=== PATIENT | female | born 1995 | race African-American/Black ===

== ENCOUNTER 2016-06-09 10:07 | Observation (INO) | payer OTHER ==
[2016-04-06 13:50] VITALS: BP 137/98
[~2016-06-09 10:07] MED LIST: FLUT9.9S NS; METR500T PO; PRED20TA PO; PREN1TAB58 PO; PROAIR HFA8.5 GM INH
[2016-06-09 11:07] LABS: BILIRUBIN,URINE NEGATIVE (NEG); GLUCOSE,URINE NEGATIVE (NEG); NITRITE,URINE NEGATIVE (NEG); PROTEIN,URINE NEGATIVE (NEG-TRACE); UROBILINOGEN,URINE 0.2 mg/dL (0.2 mg/dL)
== END 2016-06-09 11:30 | disposition home or self-care (01) ==
LOC: 3 SO LND 10:07
PROVIDERS: ADMIT Obstetrics & Gynecology; ATTEND Obstetrics & Gynecology
DX: O36.8120 Decreased fetal movements, second trimester, not applicable or unspecified (principal); O26.892 Other specified pregnancy related conditions, second trimester; M79.659 Pain in unspecified thigh; Z3A.22 22 weeks gestation of pregnancy
CPT/HCPCS: 81003; G0378; G0379; 59025

== ENCOUNTER 2016-07-01 07:39 | Emergency (ER) | payer OTHER ==
[~2016-07-01] VITALS: Ht 165.1 cm; Wt 63.2 kg
[2016-07-01 07:51] VITALS: BP 118/57
[2016-07-01] MEDS ORDERED: D-ME118S2 PO (08:40)
--- NOTE | 2016-07-01 08:41 | PHYS DOC ---
Past Medical History Past Medical History: Bronchitis, Other Additional Past Medical Histor: scoliosis, seasonal allergies Past Surgical History: No Surgical History Additional Information: quit smoking 5-6 months ago Alcohol Use: None Drug Use: None Adult General Chief Complaint Chief Complaint: COUGH HPI HPI Patient is a 20 year old female who is approximately 24 weeks comes to the emergency room today with complaint of ongoing cough and congestion for approximately 5-7 days. Patient denies any ill contacts. She denies foreign travel or hospitalization or antibiotics within the past 90 days. Patient denies any history of cardiopulmonary disease. Patient denies any history of PEs or DVTs. Patient denies any complications with her up to this point and denies any current lower abdominal/pelvic pain, vaginal bleeding or vaginal discharge. Patient states that she is a nonsmoker. Patient reports that she been taking some Benadryl and performing nasal washings home as recommended by Dr. Mtz, her regional office coordinator, without resolution. Patient reports that her primary concern at this time is a nasal congestion and sinus pressure. Review of Systems Review of Systems Constitutional: Denies fever or chills [] Eyes: Denies change in visual acuity, redness, or eye pain [] HENT: Denies nasal congestion or sore throat [] Respiratory: Denies cough or shortness of breath [] Cardiovascular: No additional information not addressed in HPI [] GI: Denies abdominal pain, nausea, vomiting, bloody stools or diarrhea [] : Denies dysuria or hematuria [] Musculoskeletal: Denies back pain or joint pain [] Integument: Denies rash or skin lesions [] Neurologic: Denies headache, focal weakness or sensory changes [] Endocrine: Denies polyuria or polydipsia [] Allergies Allergies Allergies Coded Allergies Type Severity Reaction Last Updated Verified No Known Drug Allergies 11/04/15 No Physical Exam Physical Exam Constitutional: Well developed, well nourished, no acute distress, non-toxic appearance. Patient is afebrile. Patient sitting in a semi-Fowlers position no acute distress. HENT: Normocephalic, atraumatic, bilateral external ears normal, oropharynx moist, no oral exudates, nose normal. Clear rhinorrhea with boggy nasal mucosa. Eyes: PERRLA, EOMI, conjunctiva normal, no discharge. [] Neck: Normal range of motion, no tenderness, supple, no stridor. There is no meningismus. There is bilateral anterior and posterior cervical lymphadenopathy. Cardiovascular:Heart rate regular rhythm, no murmur [] Lungs & Thorax: There is no respiratory distress or respiratory fatigue. Lungs are clear to auscultation bilaterally. Abdomen: Abdomen is gravid. Fundal height is consistent with dates. Abdomen is nontender to palpation. Skin: Warm, dry, no erythema, no rash. [] Back: No tenderness, no CVA tenderness. [] Extremities: No tenderness, no cyanosis, no clubbing, ROM intact, no edema. [] Neurologic: Alert and oriented X 3, normal motor function, normal sensory function, no focal deficits noted. [] Psychologic: Affect normal, judgement normal, mood normal. [] Current Patient Data Vital Signs Vital Signs Date Time Temp Pulse Resp B/P Pulse Ox O2 Delivery O2 Flow Rate FiO2 07/01/16 07:51 98.4 90 12 118/57 100 Room Air 98.4 EKG EKG [] Radiology/Procedures Radiology/Procedures [] Course & Med Decision Making Course & Med Decision Making Pertinent Labs and Imaging studies reviewed. (See chart for details) [] Dragon Disclaimer Dragon Disclaimer This electronic medical record was generated, in whole or in part, using a voice recognition dictation system. Departure Departure Impression: Primary Impression: Upper respiratory infection Disposition: 01 HOME, SELF-CARE Condition: Referrals: UNKNOWN PCP NAME (PCP) Patient Instructions: Upper Respiratory Infection, Adult, Fbrh-zv-Rash Additional Instructions: 1. Review the discharge instructions provided for self-care and reasons to return to the emergency department. 2. Take the medication as prescribed. 3. Yvbx-[id number] Afrin nasal spray twice a day for 3 days to help clear up the sinus pressure and nasal congestion. You can take [id number] Sudafed as well. Follow the directions on the box. 4. Drink 8-10, 10 ounce glasses of done caffeinated beverage daily. 5. Follow-up with your regional office coordinator on July 10 as planned. Scripts D-Methorphan Hb/Prometh Hcl (Promethazine-Dm Syrup)118 Ml Syrup5 Ml PO PRN Q6HRS COUGH #120 ML Prov:CALISTA SULLIVAN 07/01/16 CALISTA SULLIVAN Jul 01, 2016 08:41
== END 2016-07-01 08:48 | disposition home or self-care (01) ==
LOC: ER 07:39
DX: O26.892 Other specified pregnancy related conditions, second trimester (principal); J06.9 Acute upper respiratory infection, unspecified; Z3A.24 24 weeks gestation of pregnancy; M41.9 Scoliosis, unspecified; Z87.891 Personal history of nicotine dependence; Z87.09 Personal history of other diseases of the respiratory system
CPT/HCPCS: 99283

== ENCOUNTER → 2016-07-21 | Outpatient (CLI) | payer OTHER ==
[2016-07-01 07:51] VITALS: BP 118/57
[~2016-07-21] MED LIST changes: +D-ME118S2 PO
--- NOTE | 2016-07-21 16:44 | RAD ---
Obstetrical ultrasound, 07/21/2016: History: Uterine size discrepancy There is a single intrauterine fetus in a cephalic orientation. The biparietal diameter measures 7.4 cm compatible with a gestational age of approximately 30 weeks. The head measurements were not considered optimal due to difficulties related to the low position of the head. The femur length measurement suggests a gestational age of 27-28 weeks. The gestational age based on all of the measurements is 28-29 weeks yielding a sonographic EDC of 10/09/2016. This correlates well with the EDC of 10/07/2016 established on the previous ultrasound exam of 02/10/2016. Normal activity and heart motion were seen. The weight was estimated at 2 pounds and 6 ounces +/- 6 ounces. No specific abnormality is detected. The placenta lies posteriorly. A normal amount of amniotic fluid is present. The KIRSTIN was calculated at 9.9. The cervix was not adequately delineated due to shadowing from the overlying head. IMPRESSION: Single viable intrauterine fetus of 28-29 weeks gestational age as described above.
== END | disposition home or self-care (01) ==
LOC: US 14:05
PROVIDERS: ATTEND Obstetrics & Gynecology
DX: O26.849 Uterine size-date discrepancy, unspecified trimester (principal); Z3A.28 28 weeks gestation of pregnancy
CPT/HCPCS: 76805

== ENCOUNTER 2016-08-14 15:03 | Emergency (ER) | payer OTHER ==
[~2016-08-14] VITALS: Ht 165.1 cm; Wt 68.9 kg
[2016-08-14 15:08] VITALS: BP 132/77
--- NOTE | 2016-08-14 15:39 | PHYS DOC ---
Past Medical History Past Medical History: Bronchitis, Other Additional Past Medical Histor: scoliosis, seasonal allergies Past Surgical History: No Surgical History Alcohol Use: None Drug Use: None Adult General Chief Complaint Chief Complaint: OTHER COMPLAINTS HPI HPI 20-year-old female presenting to the emergency department today for Velasquez catheter removal today. She unfortunately missed her appointment today with Dr. Brandon the Velasquez catheter was placed approximately 5 days ago. She is about 8 months currently. Otherwise she denies any other complaints. Onset 5 days. Location . Duration constant. No alleviating factors present. Review of systems is negative for nausea vomiting fevers chills chest pain shortness of breath. She denies any abdominal pain and vaginal bleeding or recent trauma. All other review of systems is negative unless otherwise noted in history of present illness. Review of Systems Review of Systems SEE ABOVE. Current Medications Current Medications Current Medications Medications (Trade) Dose Ordered Sig/Roger Start Time Stop Time Status Last Admin Dose Admin Acetaminophen (Tylenol) 650 mg 1X ONCE 08/14/16 15:45 08/14/16 15:46 Allergies Allergies Allergies Coded Allergies Type Severity Reaction Last Updated Verified No Known Drug Allergies 11/04/15 No Physical Exam Physical Exam Constitutional: Well developed, well nourished, no acute distress, non-toxic appearance. HENT: Normocephalic, atraumatic, bilateral external ears normal, oropharynx moist, no oral exudates, nose normal. [] Eyes: PERRLA, EOMI, conjunctiva normal, no discharge. [] Neck: Normal range of motion, no tenderness, supple, no stridor. Cardiovascular:Heart rate regular rhythm, no murmur [] Lungs & Thorax: Bilateral breath sounds clear to auscultation Abdomen: Bowel sounds normal, soft, no tenderness, no masses, no pulsatile masses. [] Skin: Warm, dry, no erythema, no rash. Back: No tenderness, no CVA tenderness. [] Extremities: No tenderness, no cyanosis, no clubbing, ROM intact, no edema. [] Neurologic: Alert and oriented X 3, normal motor function, normal sensory function, no focal deficits noted. [] Psychologic: Affect normal, judgement normal, mood normal. Current Patient Data Vital Signs Vital Signs Date Time Temp Pulse Resp B/P Pulse Ox O2 Delivery O2 Flow Rate FiO2 08/14/16 15:08 97.5 110 20 98 Room Air 97.5 EKG EKG [] Radiology/Procedures Radiology/Procedures [] Course & Med Decision Making Course & Med Decision Making Pertinent Labs and Imaging studies reviewed. 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 She had no other complaints. Vital signs afebrile. Pulse mildly elevated at 110. Otherwise unremarkable. pt denied any contractions or evidence of labor. She was otherwise asymptomatic. I tried to call Dr. Brandon however unfortunately he was unavailable secondary to not being environmental sampler and his office believe that he was in a surgical procedure at the time. I explained to the patient denies felt it was in her best interest to have this work catheter removed by the pizza baker and recommended she make a follow-up appointment over the next day or 2. She was subsequently discharged home in stable condition. Dragon Disclaimer Dragon Disclaimer This electronic medical record was generated, in whole or in part, using a voice recognition dictation system. Departure Departure Impression: Primary Impression: Bartholin's cyst Disposition: 01 HOME, SELF-CARE Condition: STABLE Referrals: NO PCP (PCP) HARRY BRANDON MD Patient Instructions: Bartholin's Cyst and Abscess-Brief Additional Instructions: Thank you for allowing us to participate in your care today. Followup with Dr. brandon in 1-2 days. If you do not have a primary care provider you can ask for a list of our primary care providers. Return to the emergency department you have any new or concerning findings. This should be evaluated by the primary care physician and any necessary consulting services for continued management within a few days after discharge. Return to emergency room if you have any new or concerning symptoms including but not limited to fever, chills, nausea, vomiting, intractable pain, any new rashes, chest pain, shortness of air, uncontrolled bleeding, difficulty breathing, and/or vision loss. JASPER MCKEON MD Aug 14, 2016 15:39
[2016-08-14] MEDS ORDERED: ACETAMINOPHEN 325 MG TABLET. PO ONE (15:45)
[2016-08-14] MEDS ORDERED: ACET325T9 PO (15:46)
== END 2016-08-14 16:07 | disposition home or self-care (01) ==
LOC: ER 15:03
DX: O26.893 Other specified pregnancy related conditions, third trimester (principal); N75.0 Cyst of Bartholin's gland; Z3A.00 Weeks of gestation of pregnancy not specified
CPT/HCPCS: 99282

== ENCOUNTER 2016-09-18 20:05 | Observation (INO) | payer OTHER ==
[~2016-09-18 20:05] MED LIST changes: +ACET325T9 PO
[2016-09-18] MEDS ORDERED: IV RINGERS,LACTATED 1000ML 1,000 ML IV SCH (20:09)
[2016-09-18 20:31] LABS: BILIRUBIN,URINE NEGATIVE (NEG); GLUCOSE,URINE NEGATIVE (NEG); NITRITE,URINE NEGATIVE (NEG); PROTEIN,URINE NEGATIVE (NEG-TRACE); UROBILINOGEN,URINE 0.2 mg/dL (0.2 mg/dL)
[2016-09-18 20:43] LABS: BACTERIA,URINE FEW /HPF (0-FEW); RBC,URINE OCC /HPF (0-2); WBC,URINE 0 /HPF (0-4)
[2016-09-18 20:44] LABS: SQUAMOUS EPITHELIAL CELL,UR MOD /LPF
[2016-09-18 23:11] LABS: BARBITURATES NEG (NEG); BENZODIAZEPINES NEG (NEG); CANNABINOIDS NEG (NEG); COCAINE NEG (NEG); METHADONE NEG (NEG); OPIATES NEG (NEG); PHENCYCLIDINE NEG (NEG)
== END 2016-09-18 22:03 | disposition home or self-care (01) ==
LOC: 3 SO LND 20:05
PROVIDERS: ADMIT Specialist; ATTEND Specialist
DX: O26.893 Other specified pregnancy related conditions, third trimester (principal); R33.9 Retention of urine, unspecified; Z3A.36 36 weeks gestation of pregnancy
CPT/HCPCS: 81001; G0378; G0379; G0481

== ENCOUNTER 2016-09-25 01:43 | Observation (INO) | payer OTHER ==
[2016-09-25] MEDS ORDERED: IV RINGERS,LACTATED 1000ML 1,000 ML IV PRN (02:00)
[2016-09-25 02:05] LABS: BILIRUBIN,URINE NEGATIVE (NEG); GLUCOSE,URINE NEGATIVE (NEG); NITRITE,URINE NEGATIVE (NEG); PROTEIN,URINE NEGATIVE (NEG-TRACE); UROBILINOGEN,URINE 0.2 mg/dL (0.2 mg/dL)
[2016-09-25 02:11] LABS: BACTERIA,URINE 0 /HPF (0-FEW); RBC,URINE OCC /HPF (0-2); SQUAMOUS EPITHELIAL CELL,UR FEW /LPF; WBC,URINE 0 /HPF (0-4)
== END 2016-09-25 03:15 | disposition home or self-care (01) ==
LOC: 3 SO LND 01:43
PROVIDERS: ADMIT Specialist; ATTEND Specialist
DX: O62.9 Abnormality of forces of labor, unspecified (principal); Z3A.37 37 weeks gestation of pregnancy
CPT/HCPCS: 81001; G0378; G0379

== ENCOUNTER 2016-09-30 06:13 | Observation (INO) | payer OTHER ==
[2016-09-30] MEDS ORDERED: IV RINGERS,LACTATED 1000ML 1,000 ML IV SCH (06:30)
[2016-09-30 06:48] LABS: BILIRUBIN,URINE NEGATIVE (NEG); GLUCOSE,URINE NEGATIVE (NEG); NITRITE,URINE NEGATIVE (NEG); PH,URINE 6.5; PROTEIN,URINE NEGATIVE (NEG-TRACE); UROBILINOGEN,URINE 0.2 mg/dL (0.2 mg/dL)
[2016-09-30 07:10] LABS: BACTERIA,URINE FEW /HPF (0-FEW); RBC,URINE OCC /HPF (0-2); SQUAMOUS EPITHELIAL CELL,UR MANY /LPF
--- NOTE | 2016-09-30 10:08 | RAD ---
Obstetrical ultrasound-Limited, 08/31/2016: History: Vaginal leakage, advanced , check amniotic fluid volume The limited examination demonstrate a single intrauterine fetus in a cephalic orientation. The heart rate is 152 bpm. The placenta lies posteriorly extending into the fundal region and is considered to be grade 2. A full survey was not performed at this time. The amniotic fluid index was calculated at 8.5, which is in the normal range. On the previous study of 07/21/2016 the KIRSTIN was 9.9.
[2016-10-03] MEDS ORDERED: NAPR500T3 PO (04:40)
[2016-10-03] MEDS ORDERED: HYDR-971 PO (04:40)
== END 2016-09-30 09:50 | disposition home or self-care (01) ==
LOC: 3 SO LND 06:13
PROVIDERS: ADMIT Specialist; ATTEND Specialist
DX: O62.9 Abnormality of forces of labor, unspecified (principal); O26.893 Other specified pregnancy related conditions, third trimester; N89.8 Other specified noninflammatory disorders of vagina; Z3A.38 38 weeks gestation of pregnancy
CPT/HCPCS: 76815; 81001; G0378; G0379

== ENCOUNTER 2016-11-03 14:04 | Emergency (ER) | payer OTHER ==
[~2016-11-03] VITALS: Ht 165.1 cm; Wt 63.5 kg
[~2016-11-03 14:04] MED LIST changes: +HYDR-971 PO; +NAPR500T3 PO
[2016-11-03 14:43] VITALS: BP 144/86
--- NOTE | 2016-11-03 15:29 | PHYS DOC ---
Past Medical History Past Medical History: Bronchitis, Other Additional Past Medical Histor: scoliosis, seasonal allergies Past Surgical History: No Surgical History Alcohol Use: None Drug Use: None Adult General Chief Complaint Chief Complaint: ABDOMINAL PAIN HPI HPI Patient is a 20 year old female who presents with complaint of low back pain and heavy vaginal bleeding. The patient states that she is one month . Patient delivered by spontaneous vaginal delivery on October 01, 2016. Patient states that she started having bleeding over the past couple days. Patient states that the bleeding has been very heavy which is causing the patient concern. The patient also states that she has been having trouble with back pain. Patient states that she received an epidural while in the hospital one month ago for her delivery. Patient states that she is continuing to have pain which has been treated by her primary doctor with hydrocodone. Patient denies any loss of sensation in her groin or loss of bowel or bladder control. Patient has not had any associated fevers with her symptoms. Patient rates pain currently as 9 out of 10. Review of Systems Review of Systems Constitutional: Denies fever or chills [] Eyes: Denies change in visual acuity, redness, or eye pain [] HENT: Denies nasal congestion or sore throat [] Respiratory: Denies cough or shortness of breath [] Cardiovascular: Denies chest pain or edema [] GI: Denies abdominal pain, nausea, vomiting, bloody stools or diarrhea [] : Vaginal bleeding, denies dysuria or hematuria [] Musculoskeletal: Back pain, muscle cramps [] Integument: Denies rash or skin lesions [] Neurologic: Denies headache, focal weakness or sensory changes [] Allergies Allergies Allergies Coded Allergies Type Severity Reaction Last Updated Verified No Known Drug Allergies 11/04/15 No Physical Exam Physical Exam Constitutional: Well developed, well nourished, no acute distress, non-toxic appearance. [] HENT: Normocephalic, atraumatic, bilateral external ears normal, oropharynx moist, no oral exudates, nose normal. [] Eyes: PERRLA, EOMI, conjunctiva normal, no discharge. [] Neck: Normal range of motion, no tenderness, supple, no stridor. [] Cardiovascular:Heart rate regular rhythm, no murmur [] Lungs & Thorax: Bilateral breath sounds clear to auscultation [] Abdomen: Bowel sounds normal, soft, no tenderness, no masses, no pulsatile masses. [] Skin: Warm, dry, no erythema, no rash. [] Back: Point tenderness in lower lumbar spine near insertion site of epidural, bilateral paraspinous muscle tenderness palpation, no CVA tenderness. [] Extremities: No tenderness, no cyanosis, no clubbing, ROM intact, no edema. [] Neurologic: Alert and oriented X 3, normal motor function, normal sensory function, no focal deficits noted. [] Current Patient Data Vital Signs Vital Signs Date Time Temp Pulse Resp B/P (MAP) Pulse Ox O2 Delivery O2 Flow Rate FiO2 11/03/16 14:43 98.7 60 20 144/86 (105) 98 Room Air 98.7 Lab Values Laboratory Tests Test 11/03/16 13:35 POC Urine HCG, Qualitative Hcg negative (Negative) EKG EKG Not performed [] Radiology/Procedures Radiology/Procedures Not performed [] Course & Med Decision Making Course & Med Decision Making Pertinent Labs and Imaging studies reviewed. (See chart for details) The patient was offered a pelvic exam in the emergency department to assess the extent of her bleeding. Patient's vital signs are stable and I did explain to the patient that abnormal bleeding within the first 2-3 months was common. The patient initially stated that she would like to have the pelvic exam completed, however during her emergency department stay she stated that she would have to leave because her childcare would not be available any longer at home. She did agree to follow-up with Dr. Brandon in the next 3 days and return to emergency department for any worsening symptoms. The patient's vitals continue to be stable at discharge. Dragon Disclaimer Dragon Disclaimer This electronic medical record was generated, in whole or in part, using a voice recognition dictation system. Departure Departure Impression: Primary Impression: bleeding Disposition: HOME, SELF-CARE Condition: STABLE Referrals: HARRY BRANDON MD (PCP) Patient Instructions: Care After Vaginal Delivery Additional Instructions: Follow-up with Dr. Brandon in the next 3 days. Return to the emergency department for any worsening symptoms. Problem Qualifiers Primary Impression: bleeding hemorrhage type: unspecified Qualified Codes: O72.1 - Other immediate hemorrhage SARIKA CUMMINS MD Nov 03, 2016 15:29
[2016-11-03 15:40] LABS: BILIRUBIN,URINE NEGATIVE (NEG); GLUCOSE,URINE NEGATIVE (NEG); NITRITE,URINE NEGATIVE (NEG); PH,URINE 7.5; PROTEIN,URINE NEGATIVE (NEG-TRACE)
[2016-11-03 16:46] LABS: BACTERIA,URINE 0 /HPF (0-FEW); SQUAMOUS EPITHELIAL CELL,UR OCC /LPF; WBC,URINE OCC /HPF (0-4)
== END 2016-11-03 15:45 | disposition home or self-care (01) ==
LOC: ER 14:04
DX: O72.1 Other immediate postpartum hemorrhage (principal); O90.89 Other complications of the puerperium, not elsewhere classified; M54.5 Low back pain; M41.9 Scoliosis, unspecified
CPT/HCPCS: 81001; 81025; 87086; 99284

== ENCOUNTER 2018-05-29 12:37 | Emergency (ER) | payer SELFPAY ==
[~2018-05-29] VITALS: Ht 165.1 cm; Wt 63.5 kg
[2018-05-29 12:37] VITALS: BP 124/69
[~2018-05-29 12:37] MED LIST changes: +ALBU2.5V8 INH; -D-ME118S2 PO; +HYDR-3164 PO; -HYDR-971 PO; +NAPR-514 PO; -NAPR500T3 PO; -PROAIR HFA8.5 GM INH; +PROM118S9 PO
[2018-05-29] MEDS ORDERED: IV NORMAL SALINE 1000ML BAG 1,000 ML IV ONE (13:00)
[2018-05-29 13:13] LABS: BILIRUBIN,URINE NEGATIVE (NEG); CLARITY,URINE CLEAR; COLOR,URINE YELLOW; NITRITE,URINE NEGATIVE (NEG); PH,URINE 7.5; PROTEIN,URINE NEGATIVE (NEG-TRACE)
[2018-05-29 13:27] LABS: BACTERIA,URINE FEW /HPF (0-FEW); SQUAMOUS EPITHELIAL CELL,UR MOD /LPF; WBC,URINE 0 /HPF (0-4)
[2018-05-29] MEDS ORDERED: ONDANSETRON PF 4 MG/2 ML VIAL. IV ONE (13:30)
[2018-05-29 14:07] LABS: CALCIUM 8.8 mg/dL (8.5-10.1); CREATININE 0.5 mg/dL (0.6-1.0); GFR 188.5; POTASSIUM 3.9 mmol/L (3.5-5.1)
[2018-05-29] MEDS ORDERED: METO10TA81 PO (14:34)
--- NOTE | 2018-05-29 15:42 | PHYS DOC ---
Past Medical History Past Medical History: Bronchitis, Other Additional Past Medical Histor: scoliosis, seasonal allergies Past Surgical History: No Surgical History Alcohol Use: None Drug Use: None Adult General Chief Complaint Chief Complaint: GI PROBLEM HPI HPI Patient is a 22 year old female who presents with flu-like symptoms. Patient has had general body aches and nausea with some vomiting and upper airway complaints over the last 5 days. She did not have a her at home but does endorse some chills. She also states she had some vomiting mostly earlier in the week but she does have some residual nausea. No vomiting today. She has been able to keep down food and fluids today. No cough. No shortness of breath. She does not have any other chronic health problems. Her last menstrual. Was 4 weeks ago and she fears there is a possibility of . She is not currently on control. She denies any significant abdominal pain. No vaginal symptoms. No irregular discharge or bleeding. She is sexually active. Review of Systems Review of Systems Constitutional: Denies fever or chills Eyes: Denies change in visual acuity HENT: Denies nasal congestion or sore throat Respiratory: Denies cough or shortness of breath Cardiovascular: No additional information not addressed in HPI GI: Denies abdominal pain, nausea, vomiting, bloody stools or diarrhea : Denies dysuria Musculoskeletal: Denies back pain Integument: Denies rash or skin lesions Neurologic: Denies headache All other systems were reviewed and found to be within normal limits, except as documented in this note. Current Medications Current Medications Current Medications Medications (Trade) Dose Ordered Sig/Roger Start Time Stop Time Status Last Admin Dose Admin Ondansetron HCl (Zofran) 4 mg 1X ONCE 05/29/18 13:30 05/29/18 13:31 DC 05/29/18 13:32 4 MG Sodium Chloride 1,000 ml @ 1,000 mls/hr 1X ONCE 05/29/18 13:00 05/29/18 13:59 DC 05/29/18 13:32 1,000 MLS/HR Allergies Allergies Allergies Coded Allergies Type Severity Reaction Last Updated Verified No Known Drug Allergies 11/04/15 No Physical Exam Physical Exam Constitutional: Well developed, well nourished, no acute distress HENT: Normocephalic, atraumatic, bilateral external ears normal, oropharynx moist Eyes: PERRLA, EOMI, conjunctiva normal Neck: Normal range of motion Cardiovascular:Heart rate regular rhythm, no murmur Lungs & Thorax: Bilateral breath sounds clear to auscultation Abdomen: Bowel sounds normal, soft Skin: Warm, dry, no erythema, no rash Back: No tenderness, no CVA tenderness Extremities: No tenderness, no cyanosis Neurologic: Alert and oriented X 3 Psychologic: Affect normal, judgement normal Current Patient Data Vital Signs Vital Signs Date Time Temp Pulse Resp B/P (MAP) Pulse Ox O2 Delivery O2 Flow Rate FiO2 05/29/18 12:37 97.7 67 16 124/69 (87) 100 Room Air 97.7 Lab Values Laboratory Tests Test 05/29/18 12:50 05/29/18 12:58 05/29/18 13:30 Urine Collection Type Unknown Urine Color Yellow Urine Clarity Clear Urine pH 7.5 Urine Specific [place] 1.015 Urine Protein Negative mg/dL (NEG-TRACE) Urine Glucose (UA) Negative mg/dL (NEG) Urine Ketones (Stick) Negative mg/dL (NEG) Urine Blood Trace (NEG) Urine Nitrite Negative (NEG) Urine Bilirubin Negative (NEG) Urine Urobilinogen Dipstick 1.0 mg/dL (0.2 mg/dL) Urine Leukocyte Esterase Negative (NEG) Urine RBC 3-5 /HPF (0-2) Urine WBC 0 /HPF (0-4) Urine Squamous Epithelial Cells Mod /LPF Urine Bacteria Few /HPF (0-FEW) POC Urine HCG, Qualitative Hcg negative (Negative) Sodium Level 133 mmol/L (136-145) L Potassium Level 3.9 mmol/L (3.5-5.1) Chloride Level 100 mmol/L (98-107) Carbon Dioxide Level 27 mmol/L (21-32) Anion Gap 6 (6-14) Blood Urea Nitrogen 8 mg/dL (7-20) Creatinine 0.5 mg/dL (0.6-1.0) L Estimated GFR (Cockcroft-Gault) 188.5 Glucose Level 87 mg/dL (70-99) Calcium Level 8.8 mg/dL (8.5-10.1) Laboratory Tests 05/29/18 13:30 EKG EKG [] Radiology/Procedures Radiology/Procedures [] Course & Med Decision Making Course & Med Decision Making Pertinent Labs and Imaging studies reviewed. (See chart for details) was evaluated in the emergency department primarily for some gastritis type symptoms or viral type symptoms. She was given 1 L of fluid. She had a urinalysis which did not reveal any infection. She was not . She was feeling much improved after 1 L fluid and was discharged to home. She was advised to follow-up with her primary care doctor. She is provided a prescription for Reglan to use as needed for nausea symptoms. Her abdominal exam was benign and she had no significant pelvic complaints today. Dragon Disclaimer Dragon Disclaimer This electronic medical record was generated, in whole or in part, using a voice recognition dictation system. Departure Departure Impression: Primary Impression: Viral syndrome Additional Impression: Nausea and vomiting Disposition: HOME, SELF-CARE Condition: GOOD Patient Instructions: Viral Gastroenteritis, [id number] Scripts Metoclopramide Hcl (REGLAN) 10 Mg Tablet 1 TAB PO TID PRN for NAUSEA, #10 TAB Prov: JOSH ALCANTAR DO 05/29/18 Problem Qualifiers JOSH ALCANTAR DO May 29, 2018 15:42
== END 2018-05-29 14:36 | disposition home or self-care (01) ==
LOC: ER 12:37
DX: M79.18 Myalgia, other site (principal); B34.9 Viral infection, unspecified
CPT/HCPCS: 36415; 80048; 81001; 81025; 96361; 96374; 99283; J2405; J7030

== ENCOUNTER 2018-06-15 11:10 | Emergency (ER) | payer SELFPAY ==
[~2018-06-15] VITALS: Ht 165.1 cm; Wt 56.7 kg
[~2018-06-15 11:10] MED LIST changes: +METO10TA81 PO
[2018-06-15 12:08] VITALS: BP 124/80
[2018-06-15] MEDS ORDERED: KETOROLAC 60 MG/2 ML VIAL. IM ONE (12:15)
[2018-06-15] MEDS ORDERED: IBUPROFEN 400 MG TABLET. PO ONE ×2 (12:30→12:34)
[2018-06-15] MEDS ORDERED: AMOX500C PO (12:31)
[2018-06-15] MEDS ORDERED: IBUP-1060 PO (12:31)
--- NOTE | 2018-06-15 12:31 | PHYS DOC ---
Past Medical History Past Medical History: Bronchitis, Other Additional Past Medical Histor: scoliosis, seasonal allergies Past Surgical History: No Surgical History Alcohol Use: None Drug Use: None Adult General Chief Complaint Chief Complaint: DENTAL PROBLEM HPI HPI Patient is a 22 year old female who presents with pain to her lower left gumline, she feels like there is a flap of skin that is swollen. She denies nausea, vomiting or fever. She has not seen a dentist. Review of Systems Review of Systems Constitutional: Denies fever or chills [] Eyes: Denies change in visual acuity, redness, or eye pain [] HENT: See HPI Respiratory: Denies cough or shortness of breath [] Cardiovascular: No additional information not addressed in HPI [] Neurologic: Denies headache, focal weakness or sensory changes [] Endocrine: Denies polyuria or polydipsia [] All other systems were reviewed and found to be within normal limits, except as documented in this note. Current Medications Current Medications Current Medications Medications (Trade) Dose Ordered Sig/Roger Start Time Stop Time Status Last Admin Dose Admin Ibuprofen (Motrin) 400 mg STK-MED ONCE 06/15/18 12:34 06/15/18 12:42 DC Ketorolac Tromethamine (Toradol Im) 60 mg 1X ONCE 06/15/18 12:15 06/15/18 12:16 DC Allergies Allergies Allergies Coded Allergies Type Severity Reaction Last Updated Verified No Known Drug Allergies 11/04/15 No Physical Exam Physical Exam Constitutional: Well developed, well nourished, no acute distress, non-toxic appearance. [] HENT: Normocephalic, atraumatic, erythema and swelling to the mid left gumline, no obvious pus pool, oropharynx moist, no oral exudates, nose normal. [] Eyes: PERRLA, EOMI, conjunctiva normal, no discharge. [] Neck: Normal range of motion, no tenderness, supple, no stridor. [] Cardiovascular:Heart rate regular rhythm, no murmur [] Lungs & Thorax: Bilateral breath sounds clear to auscultation [] Neurologic: Alert and oriented X 3, normal motor function, normal sensory function, no focal deficits noted. [] Psychologic: Affect normal, judgement normal, mood normal. [] Current Patient Data Vital Signs Lab Values Laboratory Tests Test 06/15/18 12:23 POC Urine HCG, Qualitative Hcg negative (Negative) EKG EKG [] Radiology/Procedures Radiology/Procedures [] Course & Med Decision Making Course & Med Decision Making Pertinent Labs and Imaging studies reviewed. (See chart for details) [] Dragon Disclaimer Dragon Disclaimer This electronic medical record was generated, in whole or in part, using a voice recognition dictation system. Departure Departure Impression: Primary Impression: Dental infection Disposition: HOME, SELF-CARE Condition: STABLE Referrals: NO PCP (PCP) Patient Instructions: Dental Pain Additional Instructions: Take medications as directed. Follow-up with a dentist at an earliest available appointment. Scripts Ibuprofen (IBUPROFEN) 800 Mg Tablet 800 MG PO PRN Q6HRS PRN for INFLAMMATION, #20 TAB Prov: MADDY COOPER APRN 06/15/18 Amoxicillin (AMOXICILLIN) 500 Mg Capsule 2 CAP PO BID for dental infection, #40 CAP Prov: MADDY COOPER APRN 06/15/18 MADDY COOPER APRN Jun 15, 2018 12:31
== END 2018-06-15 12:42 | disposition home or self-care (01) ==
LOC: ER 11:10
DX: K04.7 Periapical abscess without sinus (principal)
CPT/HCPCS: 81025; 99283

== ENCOUNTER 2018-12-20 18:43 | Emergency (ER) | payer SELFPAY ==
[~2018-12-20 18:43] MED LIST changes: +AMOX500C PO; +IBUP-1060 PO
== END 2018-12-20 20:23 | disposition left against medical advice (07) ==
LOC: ER 18:43
DX: O26.891 Other specified pregnancy related conditions, first trimester (principal); R10.9 Unspecified abdominal pain; Z3A.01 Less than 8 weeks gestation of pregnancy; Z53.21 Procedure and treatment not carried out due to patient leaving prior to being seen by health care provider

== ENCOUNTER 2019-10-15 10:29 | Emergency (ER) | payer SELFPAY ==
[~2019-10-15] VITALS: Ht 165.1 cm; Wt 56.8 kg
[~2019-10-15 10:29] MED LIST changes: +PROM118S10 PO; -PROM118S9 PO
[2019-10-15 11:12] VITALS: BP 111/65
[2019-10-15 12:00] LABS: BILIRUBIN,URINE NEGATIVE (NEG); CLARITY,URINE CLEAR; COLOR,URINE YELLOW; NITRITE,URINE NEGATIVE (NEG); PROTEIN,URINE NEGATIVE (NEG-TRACE); UROBILINOGEN,URINE 0.2 mg/dL (0.2 mg/dL)
[2019-10-15 12:35] LABS: SQUAMOUS EPITHELIAL CELL,UR MANY /LPF
[2019-10-15 12:36] LABS: BACTERIA,URINE FEW /HPF (0-FEW)
[2019-10-15 13:05] LABS: BASO % 0 % (0-3); EOS # 0.1 x10^3/uL (0.0-0.7); EOS % 1 % (0-3); HEMATOCRIT 34.6 % (36.0-47.0); HEMOGLOBIN 12.4 g/dL (12.0-15.5); LYMPH # 1.8 x10^3/uL (1.0-4.8); LYMPH % 27 % (24-48); MEAN CORPUSCULAR HEMOGLOBIN 33 pg (25-35); MEAN CORPUSCULAR HGB CONC 36 g/dL (31-37); MEAN CORPUSCULAR VOLUME 92 fL (79-100); MONO # 0.3 x10^3/uL (0.0-1.1); MONO % 5 % (0-9); NEUT # 4.4 x10^3/uL (1.8-7.7); NEUT % 67 % (31-73); PLATELET COUNT 402 x10^3/uL (140-400); RED BLOOD COUNT 3.76 x10^6/uL (3.50-5.40); RED CELL DISTRIBUTION WIDTH 12.5 % (11.5-14.5); WHITE BLOOD COUNT 6.6 x10^3/uL (4.0-11.0)
[2019-10-15 13:11] LABS: CALCIUM 8.5 mg/dL (8.5-10.1); CREATININE 0.5 mg/dL (0.6-1.0); GFR 186.7; POTASSIUM 3.3 mmol/L (3.5-5.1)
[2019-10-15 13:18] LABS: ALBUMIN 3.3 g/dL (3.4-5.0); TOTAL BILIRUBIN 0.2 mg/dL (0.2-1.0); TOTAL PROTEIN 6.5 g/dL (6.4-8.2)
--- NOTE | 2019-10-15 14:01 | PHYS DOC ---
Past Medical History Past Medical History: Bronchitis, Other Additional Past Medical Histor: scoliosis, seasonal allergies Past Surgical History: No Surgical History Smoking Status: Current Every Day Smoker Additional Information: 0.5 PPD Alcohol Use: None Drug Use: None General Adult EDM: Chief Complaint: ABDOMINAL PAIN IN HPI: HPI: Per nurse, Patient is a 23 year old female who presented to ER today due to low abdominal cramping. Patient just found out that she is she went to be checked out. Patient denies any vaginal bleeding or discharge, no fever, no nausea vomiting. This physician went to see patient in her room but she was not in the room. Nurse reported that patient went to the bathroom. This physician was intended to come back to initiate the exam, this physician then ordered some basic lab work before seeing the patient. Review of Systems: Review of Systems: NOT ABLE TO OBTAIN BECAUSE PATIENT LEFT BEFORE BEING EXAMINED BY THIS PHYSICIAN Heart Score: Risk Factors: Risk Factors: DM, Current or recent (<one month) smoker, HTN, HLP, family history of CAD, obesity. Risk Scores: Score 0 - 3: 2.5% MACE over next 6 weeks - Discharge Home Score 4 - 6: 20.3% MACE over next 6 weeks - Admit for Clinical Observation Score 7 - 10: 72.7% MACE over next 6 weeks - Early Invasive Strategies Allergies: Allergies: Allergies Coded Allergies Type Severity Reaction Last Updated Verified No Known Drug Allergies 11/04/15 No Physical Exam: PE: NO EXAM WAS DONE BECAUSE PATIENT LEFT BEFORE BEING SEEN BY PHYSICIAN Current Patient Data: Labs: Laboratory Tests Test 10/15/19 10:38 10/15/19 10:42 10/15/19 12:50 10/15/19 12:55 Urine Collection Type Unknown Urine Color Yellow Urine Clarity Clear Urine pH 7.0 (<5.0-8.0) Urine Specific Amasa 1.025 (1.000-1.030) Urine Protein Negative mg/dL (NEG-TRACE) Urine Glucose (UA) Negative mg/dL (NEG) Urine Ketones (Stick) Negative mg/dL (NEG) Urine Blood Negative (NEG) Urine Nitrite Negative (NEG) Urine Bilirubin Negative (NEG) Urine Urobilinogen Dipstick 0.2 mg/dL (0.2 mg/dL) Urine Leukocyte Esterase Small (NEG) Urine RBC 11-20 /HPF (0-2) Urine WBC 1-4 /HPF (0-4) Urine Squamous Epithelial Cells Many /LPF Urine Bacteria Few /HPF (0-FEW) Urine Mucus Marked /LPF POC Urine HCG, Qualitative Hcg positive (Negative) White Blood Count 6.6 x10^3/uL (4.0-11.0) Red Blood Count 3.76 x10^6/uL (3.50-5.40) Hemoglobin 12.4 g/dL (12.0-15.5) Hematocrit 34.6 % (36.0-47.0) L Mean Corpuscular Volume 92 fL (79-100) Mean Corpuscular Hemoglobin 33 pg (25-35) Mean Corpuscular Hemoglobin Concent 36 g/dL (31-37) Red Cell Distribution Width 12.5 % (11.5-14.5) Platelet Count 402 x10^3/uL (140-400) H Neutrophils (%) (Auto) 67 % (31-73) Lymphocytes (%) (Auto) 27 % (24-48) Monocytes (%) (Auto) 5 % (0-9) Eosinophils (%) (Auto) 1 % (0-3) Basophils (%) (Auto) 0 % (0-3) Neutrophils # (Auto) 4.4 x10^3/uL (1.8-7.7) Lymphocytes # (Auto) 1.8 x10^3/uL (1.0-4.8) Monocytes # (Auto) 0.3 x10^3/uL (0.0-1.1) Eosinophils # (Auto) 0.1 x10^3/uL (0.0-0.7) Basophils # (Auto) 0.0 x10^3/uL (0.0-0.2) Maternal Serum HCG Beta Subunit 39250 mIU/mL (0-5) H Sodium Level 136 mmol/L (136-145) Potassium Level 3.3 mmol/L (3.5-5.1) L Chloride Level 103 mmol/L (98-107) Carbon Dioxide Level 23 mmol/L (21-32) Anion Gap 10 (6-14) Blood Urea Nitrogen 6 mg/dL (7-20) L Creatinine 0.5 mg/dL (0.6-1.0) L Estimated GFR (Cockcroft-Gault) 186.7 BUN/Creatinine Ratio 12 (6-20) Glucose Level 80 mg/dL (70-99) Calcium Level 8.5 mg/dL (8.5-10.1) Total Bilirubin 0.2 mg/dL (0.2-1.0) Aspartate Amino Transferase (AST) 12 U/L (15-37) L Alanine Aminotransferase (ALT) 13 U/L (14-59) L Alkaline Phosphatase 44 U/L (46-116) L Total Protein 6.5 g/dL (6.4-8.2) Albumin 3.3 g/dL (3.4-5.0) L Albumin/Globulin Ratio 1.0 (1.0-1.7) Laboratory Tests 10/15/19 12:50 Laboratory Tests 10/15/19 12:55 Vital Signs: Vital Signs Date Time Temp Pulse Resp B/P (MAP) Pulse Ox O2 Delivery O2 Flow Rate FiO2 10/15/19 11:12 84 12 111/65 (80) 96 Room Air 10/15/19 10:39 98.4 98.4 EKG: EKG: [] Radiology/Procedures: Radiology/Procedures: [] Course & Med Decision Making: Course & Med Decision Making Pertinent Labs and Imaging studies reviewed. (See chart for details) This physician was busy with another critical patient, when this physician went to see the patient, patient was not in the room again. Nurse reported that patient just left AGAINST MEDICAL ADVICE. This physician never saw this patient. this encounter should be classified LEFT WITHOUT BEING SEEN. Ilene Disclaimer: Dragnena Disclaimer: This electronic medical record was generated, in whole or in part, using a voice recognition dictation system. Departure Departure Impression: Primary Impression: Abdominal pain in Disposition: 07 AGAINST MEDICAL ADVICE Referrals: NO PCP (PCP) Justicifation of Admission Dx: Justifications for Admission: Justification of Admission Dx: N/A FELIX MELLO DO Oct 15, 2019 14:01
== END 2019-10-15 13:34 | disposition left against medical advice (07) ==
LOC: ER 10:29
DX: O26.891 Other specified pregnancy related conditions, first trimester (principal); R10.30 Lower abdominal pain, unspecified; J30.2 Other seasonal allergic rhinitis; M41.80 Other forms of scoliosis, site unspecified; F17.200 Nicotine dependence, unspecified, uncomplicated; Z3A.00 Weeks of gestation of pregnancy not specified
CPT/HCPCS: 36415; 80053; 81001; 81025; 84702; 85025; 86900; 86901; 87086; 99283

== ENCOUNTER 2019-10-29 12:25 | Emergency (ER) | payer MEDICAID, OTHER ==
[~2019-10-29] VITALS: Ht 165.1 cm; Wt 59.0 kg
[2019-10-29] MEDS ORDERED: ACETAMINOPHEN 500 MG TABLET PO ONE (13:00)
--- NOTE | 2019-10-29 13:03 | PHYS DOC ---
Past Medical History Past Medical History: Bronchitis, Other Additional Past Medical Histor: scoliosis, seasonal allergies Additional Past Surgical Histo: Elective D&C Smoking Status: Former Smoker Alcohol Use: None Drug Use: None General Adult EDM: Chief Complaint: ABDOMINAL PAIN IN HPI: HPI: Patient is a 23 year old AA female who presents to the emergency department with complaints of pain with a deep breath on the right side that began today. She reports that the pain in the right side of her chest increases with palpation. She denies any cough, shortness of breath, wheezing, hemoptysis, sputum production, sore throat, ear pain, headache, dizziness, weakness, body aches, fatigue, nausea, vomiting, diarrhea, back pain, hematuria, irregular vaginal odor, vaginal discharge, or vaginal bleeding. She reports increased urinary frequency. Patient states she is currently , 5, para 1, 3 (1 of them elective). She states she is unsure of her last menstrual cycle goal she believes that it was somewhere around June [id number]. Patient states she has not had a visit with her ORTHOPEDICS PEDIATRIC PHYSICIAN yet because she was afraid of mary COVID. She denies any contact with anyone who has the virus and denies any symptoms of the virus. The patient currently rates her pelvic discomfort a 9 out of 10 on the pain scale, she denies any alleviating or exacerbating factors. Review of Systems: Review of Systems: Constitutional: Denies fever or chills. [] Eyes: Denies change in visual acuity. [] HENT: Denies nasal congestion or sore throat. [] Respiratory: Denies cough or shortness of breath; see HPI. [] Cardiovascular: Denies chest pain or edema. [] GI: Denies nausea, vomiting, bloody stools or diarrhea; see HPI. [] : See HPI Musculoskeletal: Denies back pain or joint pain. [] Integument: Denies rash. [] Neurologic: Denies headache, focal weakness or sensory changes. [] Endocrine: Denies polyuria or polydipsia. [] Lymphatic: Denies swollen glands. [] Psychiatric: Denies depression or anxiety. [] Heart Score: Risk Factors: Risk Factors: DM, Current or recent (<one month) smoker, HTN, HLP, family history of CAD, obesity. Risk Scores: Score 0 - 3: 2.5% MACE over next 6 weeks - Discharge Home Score 4 - 6: 20.3% MACE over next 6 weeks - Admit for Clinical Observation Score 7 - 10: 72.7% MACE over next 6 weeks - Early Invasive Strategies Allergies: Allergies: Allergies Coded Allergies Type Severity Reaction Last Updated Verified No Known Drug Allergies 11/04/15 No Physical Exam: PE: Constitutional: Well developed, well nourished, no acute distress, non-toxic appearance. [] HENT: Normocephalic, atraumatic, bilateral external ears normal, nose normal. [] Eyes: PERRLA, EOMI, conjunctiva normal, no discharge. [] Neck: Normal range of motion, no stridor. [] Cardiovascular:Heart rate regular rhythm Lungs & Thorax: Lungs clear throughout all maldonado, respirations even and unlabored, no retractions, no respiratory distress; right upper anterior chest w all tenderness to palpation increases with deep breath Abdomen: soft, suprapubic tenderness, palpable fundus midway between the umbilicus and the pubis Back: No CVA tenderness Skin: Warm, dry, no erythema, no rash. [] Extremities: No cyanosis, ROM intact, no edema. [] Neurologic: Alert and oriented X 3, no focal deficits noted. [] Psychologic: Affect normal, judgement normal, mood normal. [] Current Patient Data: Labs: Laboratory Tests Test 10/29/19 12:41 POC Urine HCG, Qualitative Hcg positive (Negative) Vital Signs: Vital Signs Date Time Temp Pulse Resp B/P (MAP) Pulse Ox O2 Delivery O2 Flow Rate FiO2 10/29/19 12:43 98.5 90 20 127/59 (81) 97 Room Air 98.5 EKG: EKG: [] Radiology/Procedures: Radiology/Procedures: PROCEDURE: PREG MORE THAN OR EQ TO 14 WKS Obstetric ultrasound less than 14 weeks HISTORY: Pelvic pain. FINDINGS: Transabdominal transducer was utilized. Shipfitter measures a cervical length of 3.5 cm without funneling or shortening evident although the accuracy of the measurement may be limited. Anterior placenta. There may be marginal previa. Subjectively normal volume of amniotic fluid. Single living intrauterine fetus with estimated sonographic gestational age 15 weeks 1 day and sonographic date of delivery April 20, 2020. This is concordant with the clinical gestational age of 15 weeks 3 days. heart rate 163 bpm. Right maternal ovary measures 2.8 x 1.7 x 2.4 cm with intact blood flow. Left ovary measures 2.9 x 1.7 x 3.3 cm with intact blood flow. No adnexal masses. No pelvic fluid. Biparietal diameter 2.05 cm, gestational age 15 weeks 4 days, 54th percentile. Head circumference 11.23 cm, gestational age 15 weeks 3 days, 34th percentile. Abdominal circumference 8.66 cm, gestational age 15 weeks 0 days, 35th percentile. Femur length 1.44 cm, gestational age 14 weeks 2 days, 8th percentile. IMPRESSION: Single living intrauterine fetus with estimated sonographic gestational age of 15 weeks 1 day. There is a marginal placenta previa. See above. [] Course & Med Decision Making: Course & Med Decision Making Pertinent Labs and Imaging studies reviewed. (See chart for details) [] Dragon Disclaimer: Dragon Disclaimer: This electronic medical record was generated, in whole or in part, using a voice recognition dictation system. Departure Departure Impression: Primary Impression: Right-sided chest wall pain Additional Impressions: Costochondral chest pain 15 weeks gestation of Abdominal pain during in second trimester Disposition: 01 HOME, SELF-CARE Condition: STABLE Referrals: NO PCP (PCP) Patient Instructions: Abdominal Pain During , [id number], Costochondritis, [id number] Additional Instructions: According to your ultrasound your 15 weeks 1 day with estimated due date of April 20, 2020. You can take Tylenol as needed for pain. Follow-up with your ORTHOPEDICS PEDIATRIC PHYSICIAN as scheduled. Return to the emergency department if your symptoms worsen. Justicifation of Admission Dx: Justifications for Admission: Justification of Admission Dx: N/A KASHIF DELAROSA BUSINESS PARTNER Oct 29, 2019 13:03
[2019-10-29 13:06] LABS: BILIRUBIN,URINE NEGATIVE (NEG); CLARITY,URINE CLEAR; COLOR,URINE YELLOW; NITRITE,URINE NEGATIVE (NEG); PROTEIN,URINE 30 mg/dL (NEG-TRACE)
[2019-10-29 13:19] LABS: SQUAMOUS EPITHELIAL CELL,UR MOD /LPF
[2019-10-29 13:21] LABS: BACTERIA,URINE 0 /HPF (0-FEW); WBC,URINE RARE /HPF (0-4)
--- NOTE | 2019-10-29 13:47 | RAD ---
Obstetric ultrasound less than 14 weeks HISTORY: Pelvic pain. FINDINGS: Transabdominal transducer was utilized. Electric Clock Mechanic measures a cervical length of 3.5 cm without funneling or shortening evident although the accuracy of the measurement may be limited. Anterior placenta. There may be marginal previa. Subjectively normal volume of amniotic fluid. Single living intrauterine fetus with estimated sonographic gestational age 15 weeks 1 day and sonographic date of delivery April 20, 2020. This is concordant with the clinical gestational age of 15 weeks 3 days. heart rate 163 bpm. Right maternal ovary measures 2.8 x 1.7 x 2.4 cm with intact blood flow. Left ovary measures 2.9 x 1.7 x 3.3 cm with intact blood flow. No adnexal masses. No pelvic fluid. Biparietal diameter 2.05 cm, gestational age 15 weeks 4 days, 54th percentile. Head circumference 11.23 cm, gestational age 15 weeks 3 days, 34th percentile. Abdominal circumference 8.66 cm, gestational age 15 weeks 0 days, 35th percentile. Femur length 1.44 cm, gestational age 14 weeks 2 days, 8th percentile. IMPRESSION: Single living intrauterine fetus with estimated sonographic gestational age of 15 weeks 1 day. There is a marginal placenta previa. See above. Electronically signed by: Wayne Denton MD (10/29/2019 1:45 PM) [facility]
[2019-10-29 14:10] VITALS: BP 118/61
== END 2019-10-29 14:23 | disposition home or self-care (01) ==
LOC: ER 12:25
DX: O26.892 Other specified pregnancy related conditions, second trimester (principal); R07.1 Chest pain on breathing; R10.30 Lower abdominal pain, unspecified; R06.02 Shortness of breath; Z3A.15 15 weeks gestation of pregnancy; Z87.891 Personal history of nicotine dependence
CPT/HCPCS: 36415; 76805; 81001; 81025; 84702; 99284-25

== ENCOUNTER → 2019-11-02 | Outpatient (CLI) | payer OTHER ==
[2019-10-29 14:10] VITALS: BP 118/61
[2019-11-02 13:00] LABS: HEMATOCRIT 32.8 % (36.0-47.0); HEMOGLOBIN 11.8 g/dL (12.0-15.5); MEAN CORPUSCULAR HEMOGLOBIN 33 pg (25-35); MEAN CORPUSCULAR HGB CONC 36 g/dL (31-37); MEAN CORPUSCULAR VOLUME 92 fL (79-100); PLATELET COUNT 428 x10^3/uL (140-400); RED BLOOD COUNT 3.55 x10^6/uL (3.50-5.40); WHITE BLOOD COUNT 7.4 x10^3/uL (4.0-11.0)
[2019-11-02 13:51] LABS: FREE T4 0.95 ng/dL (0.76-1.46); THYROID STIM HORMONE (TSH) 0.551 uIU/mL (0.358-3.74)
== END | disposition home or self-care (01) ==
LOC: LAB 12:13
PROVIDERS: ATTEND Obstetrics & Gynecology
DX: Z34.91 Encounter for supervision of normal pregnancy, unspecified, first trimester (principal)
CPT/HCPCS: 36415; 81511; 84439; 84443; 85027; 85660; 86592; 86703; 86762; 86787; 86803; 86850; 86900; 86901; 87340

== ENCOUNTER → 2019-11-30 | Outpatient (CLI) | payer OTHER ==
--- NOTE | 2019-11-30 17:24 | RAD ---
EXAM: Obstetrics sonogram. HISTORY: anatomy survey. TECHNIQUE: Sonographic imaging of the gravid uterus was performed. COMPARISON: 10/29/2019. FINDINGS: There is a single intrauterine fetus in variable presentation with a normal heart rate of 158 bpm. There is an anterior placenta without evidence of placenta previa. The cervix is closed and measures 4.7 cm in length. There is a normal anatomic fluid index of 14.8 cm. There is a three-vessel umbilical cord with normal insertion. body motion and breathing motion is seen. The stomach, kidneys, bladder, spine, brain, extremities and facial profile and heart are unremarkable. The biparietal diameter is 4.53 cm, corresponding with 19 weeks and 5 days. The head circumference is 16.7 cm, corresponding with 19 weeks and 3 days. The abdominal circumference is 13.42 cm, corresponding with 18 weeks and 6 days. The femoral length is 3.14 cm, corresponding with 19 weeks and 5 days. The estimated gestational age patient combined also measurements is 19 weeks and 3 days and the estimated weight is 286 g. IMPRESSION: 1. Single intrauterine fetus in variable presentation with a normal heart rate and gestational age based on ultrasound measurements of 19 weeks and 3 days 2. Unremarkable anatomy survey. Electronically signed by: Summer Van MD (11/30/2019 5:21 PM) [id number]
== END | disposition home or self-care (01) ==
LOC: US 15:28
PROVIDERS: ATTEND Obstetrics & Gynecology
DX: Z34.92 Encounter for supervision of normal pregnancy, unspecified, second trimester (principal); Z3A.19 19 weeks gestation of pregnancy
CPT/HCPCS: 76805

== ENCOUNTER → 2020-01-22 | Outpatient (CLI) | payer OTHER | END | disposition home or self-care (01) | LOC: SPEC 15:07 | PROVIDERS: ATTEND Obstetrics & Gynecology | DX: Z34.92 Encounter for supervision of normal pregnancy, unspecified, second trimester (principal); Z3A.26 26 weeks gestation of pregnancy | CPT/HCPCS: Q0111 ==

== ENCOUNTER → 2020-01-22 | Outpatient (CLI) | payer OTHER ==
[2020-01-22 15:59] LABS: HEMATOCRIT 32.2 % (36.0-47.0); HEMOGLOBIN 11.1 g/dL (12.0-15.5); RED BLOOD COUNT 3.45 x10^6/uL (3.50-5.40); RED CELL DISTRIBUTION WIDTH 14.1 % (11.5-14.5); WHITE BLOOD COUNT 9.2 x10^3/uL (4.0-11.0)
== END | disposition home or self-care (01) ==
LOC: LAB 14:32
PROVIDERS: ATTEND Obstetrics & Gynecology
DX: Z34.93 Encounter for supervision of normal pregnancy, unspecified, third trimester (principal); Z3A.25 25 weeks gestation of pregnancy
CPT/HCPCS: 36415; 82950; 85027; 86592; 86703; 86803; 87340

== ENCOUNTER → 2020-03-08 | Outpatient (CLI) | payer OTHER ==
--- NOTE | 2020-03-08 16:05 | RAD ---
EXAM: Obstetrics sonogram. HISTORY: Size and dates assessment. Placental assessment. TECHNIQUE: Sonographic imaging of a gravid uterus was performed. COMPARISON: 11/30/2019. FINDINGS: There is a single intrauterine fetus in cephalic presentation with a normal heart rate of 136 bpm. There is an anterior grade 1 placenta without evidence of placenta previa. The cervix is obscured due to head positioning. There is normal body motion. The anatomy is not formally assessed. The amniotic fluid index is normal at 10.9 cm. The biparietal diameter is 8.48 cm, corresponding with 30 weeks and 1 day. The head circumference is 31.29 cm, corresponding with 35 weeks and 0 days. The abdominal circumference is 30.37 cm, corresponding to 34 weeks and 2 days. The femoral length is 6.38 cm, corresponding with 33 weeks and 0 days. The estimated gestational age patient combined ultrasound measurements is 34 weeks and 1 day and the aspirated weight is 2327 g. This corresponds with the 50th percentile for a gestational age based on LMP of 33 weeks and 4 days. IMPRESSION: Single intrauterine fetus in cephalic presentation with normal heart rate and gestational age patient also measurements of 34 weeks and 1 day. There is an anterior placenta without evidence of placenta previa. Electronically signed by: Summer Van MD (03/08/2020 4:02 PM) [id number]
== END ==
LOC: US 14:34
PROVIDERS: ATTEND Obstetrics & Gynecology
DX: Z34.93 Encounter for supervision of normal pregnancy, unspecified, third trimester (principal); Z3A.34 34 weeks gestation of pregnancy
CPT/HCPCS: 76815

== ENCOUNTER 2020-03-13 06:31 | Observation (INO) | payer OTHER ==
[2020-03-13 07:26] LABS: BILIRUBIN,URINE NEGATIVE (NEG); CLARITY,URINE CLEAR; COLOR,URINE YELLOW; NITRITE,URINE NEGATIVE (NEG); PROTEIN,URINE NEGATIVE (NEG-TRACE); UROBILINOGEN,URINE 0.2 mg/dL (0.2 mg/dL)
[2020-03-13 07:52] LABS: RBC,URINE 0 /HPF (0-2); WBC,URINE 0 /HPF (0-4)
[2020-03-13 07:53] LABS: BACTERIA,URINE FEW /HPF (0-FEW)
== END 2020-03-13 09:55 | disposition home or self-care (01) ==
LOC: 3 SO LND 06:31
PROVIDERS: ADMIT Obstetrics & Gynecology; ATTEND Obstetrics & Gynecology
DX: O62.9 Abnormality of forces of labor, unspecified (principal); Z3A.34 34 weeks gestation of pregnancy
CPT/HCPCS: 81001; G0378; G0379; 59025

== ENCOUNTER → 2020-04-12 | Outpatient (CLI) | payer OTHER | LOC: LAB 14:50 | PROVIDERS: ATTEND Obstetrics & Gynecology | DX: Z34.93 Encounter for supervision of normal pregnancy, unspecified, third trimester (principal); Z3A.38 38 weeks gestation of pregnancy | CPT/HCPCS: 36415; 86592; 86703; 86803; 87340 ==

== ENCOUNTER 2021-01-16 05:25 | Emergency (ER) | payer OTHER ==
[~2021-01-16] VITALS: Ht 165.1 cm; Wt 60.0 kg
[~2021-01-16 05:25] MED LIST changes: +DOCU-109 PO; +OXYC1TAB15 PO
[2021-01-16 06:15] VITALS: BP 124/78
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
[2021-01-16] MEDS ORDERED: NEOMY/BACITR/POLYMYXIN OINT PACKET. TP ONE (07:00)
--- NOTE | 2021-01-16 07:03 | RAD ---
Study: XR HAND_RIGHT 3 VIEWS Indication: Fifth metacarpal pain. Comparison: None. Findings: No displaced fracture. Alignment is within normal limits considering slight obliquity on the attempte d AP view. Maintained joint spaces. No retained radiopaque foreign body. Impression: No acute fracture or traumatic malalignment. Electronically signed by: ANNIE JASSO MD (01/16/2021 7:01 AM) [facility]
[2021-01-16] MEDS ORDERED: IBUPROFEN 200 MG TABLET. PO ONE (07:15)
== END 2021-01-16 07:30 | disposition home or self-care (01) ==
LOC: ER 05:25
DX: S60.051A Contusion of right little finger without damage to nail, initial encounter (principal); S60.414A Abrasion of right ring finger, initial encounter; F17.200 Nicotine dependence, unspecified, uncomplicated; W23.0XXA Caught, crushed, jammed, or pinched between moving objects, initial encounter; Y93.89 Activity, other specified; Y92.89 Other specified places as the place of occurrence of the external cause; Y99.8 Other external cause status
CPT/HCPCS: 29130; 73130; 99283

== ENCOUNTER → 2021-04-09 | Outpatient (CLI) | payer OTHER | LOC: SPEC 12:23 | PROVIDERS: ATTEND Obstetrics & Gynecology | DX: Z20.2 Contact with and (suspected) exposure to infections with a predominantly sexual mode of transmission (principal) | CPT/HCPCS: Q0111 ==